=== PATIENT | male | born 1945 | race American Indian/Alaskan Native ===

== ENCOUNTER 2018-10-10 06:18 | Day surgery (SDC) | payer MEDICARE, OTHER ==
[2017-09-27 19:49] VITALS: BMI 16.0
[2018-10-10 06:57] VITALS: TEMP 99
[2018-10-10] MEDS ORDERED: Propofol 10 mg/ml Inj (20 ML) ONE (08:06)
--- NOTE | 2018-10-10 08:10 | CP.SDSHP ---
Same Day Surgery H & P - History Proposed Procedure: EGD Pre-Op Diagnosis: SEE NOTES - Previous Medical/Surgical History Cardiac: Hypertension Misc: Other Pain: 4.Moderate Pain - Allergies Allergies: Allergies No Known Allergies Allergy (Verified 07/23/17 10:26) - Physical Exam General Appearance: N Vital Signs: Vital Signs 10/10/18 06:32 Temperature 99 F Pulse Rate 60 Respiratory 19 Rate Blood Pressure 177/90 H O2 Sat by Pulse 98 Oximetry Mental Status: Alert & Oriented x3 Neuro: WNL Heart: Other Lungs: WNL - {Optional Preform as Required} Breast: WNL Abdomen: Other Rectal: Other Integument: WNL : WNL Ortho: WNL ENT: WNL - Impression Pt. Evaluated Today:Candidate for Anesthesia & Procedure: Yes - Date & Time Time: 08:10 Short Stay Discharge - Short Stay Discharge Admitting Diagnosis/Reason for Visit: HEMATEMESIS Disposition: HOME/ ROUTINE
[2018-10-10] MEDS ORDERED: Belladonna-Phenobarbital PO STA (08:18)
[2018-10-10] MEDS ORDERED: Sucralfate 1 gm/10 ml Oral Susp UD PO ONE (09:00)
[2018-10-10] MEDS ORDERED: hydrALAZINE 12.5 mg Tab PO ONE (09:45)
[2018-10-10 14:33] VITALS: BP 169/78; PULSE 62; RESP 14; O2SAT 98
== END 2018-10-10 14:30 | disposition home or self-care (01) ==
LOC: C.ENDO 06:18
PROVIDERS: ATTEND Specialist
DX: K21.0 Gastro-esophageal reflux disease with esophagitis (principal); K44.9 Diaphragmatic hernia without obstruction or gangrene; K29.50 Unspecified chronic gastritis without bleeding
CPT/HCPCS: 43239; J2001; J2704